=== PATIENT | male | born 1970 | race Caucasian/White ===

== ENCOUNTER 2018-10-18 17:40 | Emergency (ER) | payer SELFPAY ==
[~2018-10-18] VITALS: Ht 182.9 cm; Wt 95.5 kg
[~2018-10-18 17:40] MED LIST: AMOXICILLIN500 MG PO; ANTI-FUNGAL12 TOP; BACTRIM DS1 TAB PO; CELEXA40 M1 PO; CHERATUSSIN OR; CLONIDINE0.1 MG PO; DEPO-MEDROL80 MG/ML IM; HYDROCHLOROT25 MG PO; HYDROCORTISO2.5 % RE; HYDROXYZINE HCL25 MG OR; LISINOPRIL10 MG PO; MEDDOSEPAK OR; METOPROLOL SUCC50 MG OR; NAPROXEN500 MG PO; NORVASC PO; NORVASC2.5 M1 PO; NYSTATIN100000 M1 PO; TRIAMCINOLON0.11 EX; WELLBUTRIN150 M1 PO; [UNRECOGNIZED DRUG - OTHER]
[2018-10-18] MEDS ORDERED: AMLODIPINE5 MG PO (17:57)
[2018-10-18] MEDS ORDERED: CLONIDINE0.1 MG PO (18:10)
[2018-10-18 18:27] VITALS: BP 163/99
== END 2018-10-18 18:27 | disposition home or self-care (01) | DRG 605 ==
LOC: ED 17:40
PROC: 0HQ0XZZ Repair Scalp Skin, External Approach (ICD-10-PCS; principal; 2018-10-18)
DX: S01.01XA Laceration without foreign body of scalp, initial encounter (principal); I10 Essential (primary) hypertension; R50.9 Fever, unspecified; F17.210 Nicotine dependence, cigarettes, uncomplicated; W01.198A Fall on same level from slipping, tripping and stumbling with subsequent striking against other object, initial encounter; Y93.89 Activity, other specified; Y92.71 Barn as the place of occurrence of the external cause

== ENCOUNTER 2022-01-28 18:24 | Emergency (ER) | payer SELFPAY ==
[~2022-01-28] VITALS: Ht 182.9 cm; Wt 98.0 kg
[~2022-01-28 18:24] MED LIST changes: +AMLODIPINE5 MG PO
[2022-01-28 18:45] VITALS: BP 171/105
[2022-01-28 19:00] VITALS: BP 154/103
[2022-01-28 19:15] VITALS: BP 153/106
[2022-01-28 19:30] VITALS: BP 158/104
[2022-01-28 19:45] VITALS: BP 157/100
[2022-01-28] MEDS ORDERED: KEFLEX500 MG PO (20:34)
[2022-01-28 20:42] VITALS: BP 157/100
== END 2022-01-28 20:50 | disposition home or self-care (01) | DRG 605 ==
LOC: ED 18:24
DX: S51.812A Laceration without foreign body of left forearm, initial encounter (principal); W26.8XXA Contact with other sharp object(s), not elsewhere classified, initial encounter